=== PATIENT | female | born 1985 | race Caucasian/White ===

== ENCOUNTER 2021-03-09 21:28 | Emergency (ER) | payer SELFPAY ==
[~2021-03-09] VITALS: Ht 160 cm; Wt 81.2 kg
[2021-03-09 21:30] VITALS: BP 150/98
--- NOTE | 2021-03-09 21:33 | NUR ---
TO LOBBY A/W BED AMBULATORY
--- NOTE | 2021-03-09 21:35 | NUR ---
36 Y/O PATIENT PRESENTS TO ED WITH EARACHE . PT STATES "MY EAR WAS HURTING REALLY BAD AND IS RADIATING THROUGH THE HEAD" . DENIES N/V/D; SKIN IS PINK/WARM/DRY; AAOX4 WITH EVEN AND STEADY GAIT; LUNGS CLEAR BL; HR EVEN AND REGULAR; PT DENIES ANY FEVER, CP, SOB, OR COUGH AT THIS TIME; PATIENT STATES PAIN OF 0/10 AT THIS TIME; VSS; PATIENT POSITIONED FOR COMFORT; HOB ELEVATED; BEDRAILS UP X2; BED DOWN. ER MD MADE AWARE OF PT STATUS. NKA PMH: DENIES
[2021-03-09 22:00] VITALS: BP 135/75
--- NOTE | 2021-03-09 22:10 | NUR ---
PT TAKEN TO BED 3
[2021-03-09] MEDS ORDERED: KETOROLAC 60 MG/2 ML VIAL IM ONE (23:00)
[2021-03-09] MEDS: PROCHLORPERAZINE 10 MG/2 ML VIAL IM ONE (23:12)
[2021-03-09] MEDS: diphenhydrAMINE 50 MG/ML VIAL IM ONE (23:12)
[2021-03-09] MEDS: KETOROLAC 30 MG/ML VIAL IM ONE (23:13)
[2021-03-09] MEDS ORDERED: CIPR7.5S OT (23:53)
--- NOTE | 2021-03-10 | NUR ---
Patient discharged with v/s stable. Written and verbal after care instructions given and explained. Patient alert, oriented and verbalized understanding of instructions. Ambulatory with steady gait. All questions addressed prior to discharge. ID band removed. Patient advised to follow up with PMD. Rx of CIPRODEX given. Patient educated on indication of medication including possible reaction and side effects. Opportunity to ask questions provided and answered.
== END 2021-03-10 | disposition home or self-care (01) ==
LOC: MED 21:28
DX: R51.9 Headache, unspecified (principal); H53.8 Other visual disturbances; H92.21 Otorrhagia, right ear
CPT/HCPCS: 81025; 96372; 99284; J0780; J1200; J1885